=== PATIENT | male | born 1955 | race Caucasian/White ===

== ENCOUNTER 2021-01-25 06:36 | Day surgery (SDC) | payer BC ==
[2021-01-20 13:41] VITALS: BMI 37.6
[2021-01-25 08:08] LABS: Anion Gap 14 mmol/L (10-20); BUN (Urea Nitrogen) 22 mg/dL (8.4-25.7); Calc. Creatinine Clearance 161 mL/min (70-130); Carbon Dioxide 24 mmol/L (23-31); Chloride 107 mmol/L (98-107); Glucose 114 mg/dL (80-115); Potassium 4.2 mmol/L (3.5-5.1); Sodium 141 mmol/L (136-145)
[2021-01-25] MEDS ORDERED: Bupivacaine PF 0.5% 30 ML VIAL ONE (08:26)
[2021-01-25] MEDS ORDERED: Thrombin 5000 UNITS/5 ML VIAL ONE (08:26)
[2021-01-25] MEDS ORDERED: EPINEPHrine 1 MG/ML AMP ONE (08:26)
[2021-01-25] MEDS ORDERED: Fentanyl 100 MCG/2 ML VIAL ONE ×3 (08:29→10:33)
[2021-01-25] MEDS ORDERED: Ketorolac Tromethamine 30 MG/ML VIAL ONE (08:45)
[2021-01-25] MEDS ORDERED: Lidocaine 1% PF 5 ML VIAL ONE (08:45)
[2021-01-25] MEDS ORDERED: PROPOFOL 200 MG/20 ML VIAL ONE (08:45)
[2021-01-25] MEDS ORDERED: Dexamethasone 20 MG/5 ML VIAL ONE (08:45)
[2021-01-25] MEDS ORDERED: Rocuronium Bromide 10 MG/ML (10ML VIAL) ONE (08:45)
[2021-01-25] MEDS ORDERED: Ondansetron PF 4 MG/2 ML Vial ONE (08:45)
[2021-01-25] MEDS ORDERED: ePHEDrine Sulfate 50 MG/10 ML VIAL ONE (08:45)
[2021-01-25] MEDS ORDERED: SUGAMMADEX SODIUM 200 MG/2 ML VIAL ONE (09:29)
[2021-01-25] MEDS ORDERED: Tamsulosin HCl 0.4 MG CAP ONE (10:10)
[2021-01-25] MEDS ORDERED: HYDROcodone/Acetaminophen 5/325 mg Tablet ONE (11:43)
== END 2021-01-25 10:50 | disposition home or self-care (01) ==
LOC: SDC 06:36
PROVIDERS: ATTEND Neurological Surgery
PROC: 01NB0ZZ Release Lumbar Nerve, Open Approach (ICD-10-PCS; principal; 2021-01-25)
DX: M48.061 Spinal stenosis, lumbar region without neurogenic claudication (principal); M54.16 Radiculopathy, lumbar region; I10 Essential (primary) hypertension; E78.5 Hyperlipidemia, unspecified; J30.2 Other seasonal allergic rhinitis; M19.90 Unspecified osteoarthritis, unspecified site; F17.220 Nicotine dependence, chewing tobacco, uncomplicated; Z79.899 Other long term (current) drug therapy
CPT/HCPCS: 76000; 80048; 93005; 93010; J0171; J0690; J1100; J1885; J2405; J2704; J3010; S0020